=== PATIENT | male | born 1970 | race Caucasian/White ===

== ENCOUNTER 2020-10-05 20:45 | Emergency (ER) | payer SELFPAY ==
--- NOTE | 2020-10-05 20:44 | DI.CT.S_ITS ---
PROCEDURE: CT CERVICAL SPINE WO CON INDICATIONS: altered, found down TECHNIQUE: Noncontrast 3 mm thick sections acquired from the skull base to the T4 level. Sagittal and coronal reformats were then constructed. For radiation dose reduction, the following was used: automated exposure control, adjustment of mA and/or kV according to patient size. COMPARISON: None. FINDINGS: Image quality: Degraded by patient motion artifact. Bones: No fractures or dislocations. Visualized superior ribs are intact. Spine degenerative disc disease and facet arthropathy. Soft tissues: Prevertebral soft tissues are normal in thickness. No paravertebral hematomas. No apical pneumothoraces. Partially visualized right-sided pleural fluid collection. IMPRESSION: No fracture limitations related to motion artifact. No acute osseous lesion within limitations related to motion artifact. If symptoms and/or clinical suspicion for pathology persists, evaluation with MRI should be considered for further assessment. Dictated by: Andria Haley MD, PhD on 10/06/2020 at 7:43 Approved by: Andria Haley MD, PhD on 10/06/2020 at 7:49
--- NOTE | 2020-10-05 20:44 | DI.CT.S_ITS ---
PROCEDURE: CT HEAD/BRAIN WO CON INDICATIONS: altered, found down TECHNIQUE: Noncontrast 4.5 mm thick angled axial sections acquired from the foramen magnum to the vertex, with coronal and sagittal reformats. For radiation dose reduction, the following was used: automated exposure control, adjustment of mA and/or kV according to patient size. COMPARISON: None. FINDINGS: Image quality: Excellent. CSF spaces: Basal cisterns are patent. No extra-axial fluid collections. The ventricles are symmetric in size and shape. Brain: No intracranial bleeds or masses. There is cerebral volume loss for age, with resultant ventricular and sulcal prominence. There are periventricular and deep white matter chronic small vessel ischemic changes. There is intracranial internal carotid artery atherosclerosis. Skull and face: Calvarium and visualized facial bones appear intact, without suspicious lesions. Sinuses: Polypoid mucosal thickening noted in the maxillary sinuses bilaterally. Mild mucosal thickening scattered throughout the right ethmoid air cells. The mastoids are clear. IMPRESSION: No acute intracranial disease process. Dictated by: Andria Haley MD, PhD on 10/06/2020 at 7:15 Approved by: Andria Haley MD, PhD on 10/06/2020 at 7:17
[2020-10-05 20:45] VITALS: BP 133/87; PULSE 102; RESP 17; TEMP 36.6; O2SAT 96
[2020-10-05 21:28] LABS: Add Manual Diff / Slide Review NO; Basophils Absolute Auto 200 /uL (0-100); Basophils Percent Auto 1.4 % (0-2); Eosinophils Absolute Auto 2700 /uL (0-450); Eosinophils Percent Auto 18.1 % (2-4); Hematocrit 36.1 % (41-53); Hemoglobin 11.5 g/dL (13.5-17.5); Lymphocytes Absolute Auto 1800 /uL (1100-4500); Lymphocytes Percent Auto 12.2 % (25-40); Mean Corpuscular HGB Conc 31.8 % (30-36); Mean Corpuscular Hemoglobin 26.1 PG (26-34); Mean Corpuscular Volume 82.3 fL (80-100); Monocytes Absolute Auto 900 /uL (0-900); Neutrophils Absolute Auto 9400 /uL (1500-7000); Neutrophils Percent Auto 62.3 % (50-75); Platelet Count 714 X10^3/uL (150-400); Red Blood Cell Count 4.38 X10^6/uL (4.5-5.9); Red Cell Distribution Width 17.3 % (11.6-14.8); White Blood Cell Count 15.2 X10^3/uL (4.5-11.0)
[2020-10-05 21:35] LABS: Prothrombin Time 11.2 SECONDS (10.1-12.7)
[2020-10-05 21:38] LABS: PTT Partial Thromboplastin Tim 36 SECONDS (26.4-36.2)
--- NOTE | 2020-10-05 21:42 | PC.NURSE ---
Pt removed iv and refused lab draws; further care.
[2020-10-05 22:03] LABS: Acetaminophen < 10 ug/mL (10-30); Alanine Aminotransferase 22 IU/L (<50); Albumin 3.9 g/dL (3.5-5.0); Albumin Globulin Ratio 1.2 (1.0-2.8); Alkaline Phosphatase 112 U/L (38-126); Aspartate Aminotransferase 34 IU/L (17-59); Bilirubin Total 0.1 mg/dL (0.2-1.3); Blood Urea Nitrogen 13 mg/dL (9-20); Calcium 9.7 mg/dL (8.4-10.2); Carbon Dioxide 24 mmol/L (22-32); Chloride 105 mmol/L (98-107); Creatine Kinase 135 U/L (55-170); Estimated Glomerular Filt Rate > 60.0 mL/min (>60); Ethanol (ETOH) < 10 mg/dL; Globulin 3.3 g/dL (1.7-4.1); Glucose 116 mg/dL (70-100); HEMOLYSIS < 15 (0-50); Potassium 4.1 mmol/L (3.4-5.1); Salicylate < 1.0 mg/dL (<20); Sodium 137 mmol/L (137-145); Total Protein 7.2 g/dL (6.3-8.2)
--- NOTE | 2020-10-05 22:09 | ED.AMS ---
HPI - Altered Mental Status <Kash Manning DO - Last Filed: 10/06/20 17:59> General Chief Complaint: Altered Mental Status Stated Complaint: Laying on trail Time Seen by Provider: 10/05/20 20:46 Source: patient and EMS Mode of arrival: EMS Limitations: no limitations History of Present Illness HPI narrative: 50-year-old maleSmoker, drinker presents by EMS after being found laying on a local bike trail, he was noted by a passerby and EMS was activated. Patient is homeless and states that he was relocating himself and became tired so he laid down. He denies any injury and EMS states there was no bicycle or other suggestion of injury. He denies any head, neck or back pain. He denies any extremity discomfort. He denies any fever or chills. He has had no chest pain or shortness of breath and he denies any focal neurologic symptoms such as numbness, tingling or weakness. He has had no nausea, vomiting or diarrhea. Vitals and blood glucose were within normal limits pre-hospital. Patient does not take any medications. He denies any suicidal or homicidal ideations. MD complaint: altered mental status and intoxication Onset (ago): unknown Severity: moderate Context: alcohol abuse Associated symptoms: denies other symptoms Related Data Home Medications Medication Instructions Recorded Confirmed No Known Home Medications 10/05/20 10/05/20 Allergies Allergy/AdvReac Type Severity Reaction Status Date / Time No Known Drug Allergies Allergy Verified 10/05/20 20:49 Review of Systems <Kash Manning DO - Last Filed: 10/06/20 17:59> Constitutional Constitutional: Denies chills, Denies fatigue, Denies fever(s), Denies frequent falls, Denies lethargy and Denies weakness Eyes Eyes: Denies change in vision, Denies eye discharge, Denies irritation and Denies loss of vision ENT Ears, Nose, Mouth, and Throat: Denies change in voice, Denies dizziness, Denies neck pain, Denies sore throat and Denies throat swelling Cardiovascular Cardiovascular: Denies chest pain, Denies irregular heart rhythm, Denies lightheadedness, Denies palpitations, Denies dyspnea, Denies dyspnea on exertion and Denies orthopnea Respiratory Respiratory: Denies cough, Denies dyspnea, Denies dyspnea on exertion and Denies wheezing Gastrointestinal Gastrointestinal: Denies abdominal pain, Denies change in bowel habits, Denies diarrhea, Denies nausea and Denies vomiting Musculoskeletal Musculoskeletal: Denies neck pain and Denies numbness Integumentary/Breasts Skin/Breast: Denies pruritus, Denies erythema, Denies rash and Denies wounds Neurologic Neurologic: Denies behavioral changes, Denies confusion, Denies dizziness, Denies frequent falls, Denies loss of vision, Denies numbness and Denies weakness Psychiatric Psychiatric: Denies anxiety, Denies behavioral changes, Denies confusion, Denies depression, Denies homicidal ideation and Denies suicidal ideation Endocrine Endocrine: Denies fatigue, Denies flushing and Denies palpitations Hematologic/Lymphatic Hematologic/Lymphatic: Denies easy bruising Allergic/Immunologic Allergic/Immunologic: Denies urticaria, Denies throat swelling and Denies wheezing Patient History <Kash Manning DO - Last Filed: 10/06/20 17:59> Medical History Homeless Social History Smoking Status: Current every day smoker Smoking Status: Current every day smoker alcohol intake frequency: 0-2 drinks per day Substance Use Type: does not use Exam <Kash Manning DO - Last Filed: 10/06/20 17:59> Narrative Exam Narrative: GENERAL: [50] year old patient appears older than stated age. Slurring his words, a bit agitated, disheveled, no obvious injury, wearing a helmet which he states he wears for general safety. HEAD: Atraumatic. Normocephalic. EYES: Pupils equal round and reactive. Extraocular motions intact. No scleral icterus. No injection or drainage. ENT: Poor dentition throughout Nose without bleeding, purulent drainage. Throat without erythema, tonsillar hypertrophy or exudate. Airway patent. NECK: Trachea midline. Non tender CARDIOVASCULAR: Regular rate and rhythm without murmurs, gallops, or rubs. RESPIRATORY: Clear to auscultation. Breath sounds equal bilaterally. No wheezes, rales, or rhonchi. GASTROINTESTINAL: Abdomen soft, non-tender, nondistended. EXTREMITIES: No edema or joint tenderness. BACK: Nontender without deformity or crepitance. No flank tenderness. NEURO: Awake and alert, largely cooperative SKIN: No rash or erythema of visible areas Initial Vital Signs Initial Vital Signs: Vital Signs Temperature 97.8 F 10/05/20 20:45 Pulse Rate 102 H 10/05/20 20:45 Respiratory Rate 17 10/05/20 20:45 Blood Pressure 133/87 10/05/20 20:45 Pulse Oximetry 96 10/05/20 20:45 <Faiza Nqavi DO - Last Filed: 10/06/20 08:19> Initial Vital Signs Initial Vital Signs: Vital Signs Temperature 97.8 F 10/05/20 20:45 Pulse Rate 102 H 10/05/20 20:45 Respiratory Rate 17 10/05/20 20:45 Blood Pressure 133/87 10/05/20 20:45 Pulse Oximetry 96 10/05/20 20:45 Scores <Kash Manning DO - Last Filed: 10/06/20 17:59> GCS Thorofare coma scale eye opening: Spontaneous Alia coma scale verbal response: Confused Thorof[place] coma scale motor response: Obey commands Thorofare coma scale total score: 14 Course <Kash Manning DO - Last Filed: 10/06/20 17:59> Course Course Narrative: 0600 - patient awake. Alert, oriented. Speaking clearly. Currently agreeable to wait on a food tray and will speak with [employer] to explore possible community assistance. Orders Ordered: Discontinued Medications Sodium Chloride (Normal Saline 0.9%) 1,000 mls @ 150 mls/hr IV CONT [facility] Last Admin: 10/05/20 22:12 Dose: Not Given Documented by: PERLITA Vital Signs Vital signs: Vital Signs - 8 hr 10/05/20 20:45 Temperature 97.8 F Pulse Rate 102 H Respiratory Rate 17 Blood Pressure 133/87 Pulse Oximetry 96 <Faiza Naqvi DO - Last Filed: 10/06/20 08:19> Orders Ordered: Discontinued Medications Sodium Chloride (Normal Saline 0.9%) 1,000 mls @ 150 mls/hr IV CONT [facility] Last Admin: 10/05/20 22:12 Dose: Not Given Documented by: PERLITA Vital Signs Vital signs: Vital Signs - 8 hr 10/05/20 20:45 Temperature 97.8 F Pulse Rate 102 H Respiratory Rate 17 Blood Pressure 133/87 Pulse Oximetry 96 MDM - Altered Mental Status <Kash Manning DO - Last Filed: 10/06/20 17:59> Lab Data Result diagrams: 10/05/20 21:15 10/05/20 21:15 Labs: Lab Results 10/05/20 10/05/20 10/05/20 Range/Units 21:15 21:15 21:15 WBC 15.2 H (4.5-11.0) X10^3/uL RBC 4.38 L (4.5-5.9) X10^6/uL Hgb 11.5 L (13.5-17.5) g/dL Hct 36.1 L (41-53) % MCV 82.3 (80-100) fL MCH 26.1 (26-34) PG MCHC 31.8 (30-36) % RDW 17.3 H (11.6-14.8) % Plt Count 714 H (150-400) X10^3/uL Neut % (Auto) 62.3 (50-75) % Lymph % (Auto) 12.2 L (25-40) % Greenlee % (Auto) 6.0 (3-14) % Eos % (Auto) 18.1 H (2-4) % Baso % (Auto) 1.4 (0-2) % Neut # (Auto) 9400 H (7903-2430) /uL Lymph # (Auto) 1800 (6353-1772) /uL Greenlee # (Auto) 900 (0-900) /uL Eos # (Auto) 2700 H (0-450) /uL Baso # (Auto) 200 H (0-100) /uL PT 11.2 (10.1-12.7) SECONDS INR 1.0 (0.9-1.3) APTT 36 (26.4-36.2) SECONDS Sodium 137 (137-145) mmol/L Potassium 4.1 (3.4-5.1) mmol/L Chloride 105 (98-107) mmol/L Carbon Dioxide 24 (22-32) mmol/L BUN 13 (9-20) mg/dL Creatinine 0.65 L (0.66-1.25) mg/dL Estimated GFR > 60.0 (>60) mL/min BUN/Creatinine Ratio 20.0 (6-22) Glucose 116 H (70-100) mg/dL Lactate Calcium 9.7 (8.4-10.2) mg/dL Total Bilirubin 0.1 L (0.2-1.3) mg/dL AST 34 (17-59) IU/L ALT 22 (<50) IU/L Alkaline Phosphatase 112 (38-126) U/L Total Creatine Kinase 135 (55-170) U/L CK-MB (CK-2) 2.63 H (<2.37) ng/mL CK-MB (CK-2) Rel Index 1.9 (1.5-5.0) % Troponin I < 0.012 (0.01-0.034) ng/mL Total Protein 7.2 (6.3-8.2) g/dL Albumin 3.9 (3.5-5.0) g/dL Globulin 3.3 (1.7-4.1) g/dL Albumin/Globulin Ratio 1.2 (1.0-2.8) TSH (0.47-4.68) uIU/mL Prolactin 12.9 (3.7-17.9) ng/mL Salicylates < 1.0 (<20) mg/dL Acetaminophen < 10 L (10-30) ug/mL Ethyl Alcohol < 10 ( - 10) mg/dL 10/05/20 10/05/20 Range/Units 21:15 21:15 WBC (4.5-11.0) X10^3/uL RBC (4.5-5.9) X10^6/uL Hgb (13.5-17.5) g/dL Hct (41-53) % MCV (80-100) fL MCH (26-34) PG MCHC (30-36) % RDW (11.6-14.8) % Plt Count (150-400) X10^3/uL Neut % (Auto) (50-75) % Lymph % (Auto) (25-40) % Greenlee % (Auto) (3-14) % Eos % (Auto) (2-4) % Baso % (Auto) (0-2) % Neut # (Auto) (6083-4187) /uL Lymph # (Auto) (7714-1371) /uL Greenlee # (Auto) (0-900) /uL Eos # (Auto) (0-450) /uL Baso # (Auto) (0-100) /uL PT (10.1-12.7) SECONDS INR (0.9-1.3) APTT (26.4-36.2) SECONDS Sodium (137-145) mmol/L Potassium (3.4-5.1) mmol/L Chloride (98-107) mmol/L Carbon Dioxide (22-32) mmol/L BUN (9-20) mg/dL Creatinine (0.66-1.25) mg/dL Estimated GFR (>60) mL/min BUN/Creatinine Ratio (6-22) Glucose (70-100) mg/dL Lactate Cancelled Calcium (8.4-10.2) mg/dL Total Bilirubin (0.2-1.3) mg/dL AST (17-59) IU/L ALT (<50) IU/L Alkaline Phosphatase (38-126) U/L Total Creatine Kinase (55-170) U/L CK-MB (CK-2) (<2.37) ng/mL CK-MB (CK-2) Rel Index (1.5-5.0) % Troponin I (0.01-0.034) ng/mL Total Protein (6.3-8.2) g/dL Albumin (3.5-5.0) g/dL Globulin (1.7-4.1) g/dL Albumin/Globulin Ratio (1.0-2.8) TSH 1.11 (0.47-4.68) uIU/mL Prolactin (3.7-17.9) ng/mL Salicylates (<20) mg/dL Acetaminophen (10-30) ug/mL Ethyl Alcohol ( - 10) mg/dL Point of Care Testing Glucose POC [address] scan - head: Radiologist's Impression: No acute process CT - cervical spine: Radiologist's Impression: no bony process <Faiza Naqvi, DO - Last Filed: 10/06/20 08:19> Lab Data Labs: Lab Results 10/05/20 10/05/20 10/05/20 Range/Units 21:15 21:15 21:15 WBC 15.2 H (4.5-11.0) X10^3/uL RBC 4.38 L (4.5-5.9) X10^6/uL Hgb 11.5 L (13.5-17.5) g/dL Hct 36.1 L (41-53) % MCV 82.3 (80-100) fL MCH 26.1 (26-34) PG MCHC 31.8 (30-36) % RDW 17.3 H (11.6-14.8) % Plt Count 714 H (150-400) X10^3/uL Neut % (Auto) 62.3 (50-75) % Lymph % (Auto) 12.2 L (25-40) % Greenlee % (Auto) 6.0 (3-14) % Eos % (Auto) 18.1 H (2-4) % Baso % (Auto) 1.4 (0-2) % Neut # (Auto) 9400 H (2968-7741) /uL Lymph # (Auto) 1800 (6072-9425) /uL Greenlee # (Auto) 900 (0-900) /uL Eos # (Auto) 2700 H (0-450) /uL Baso # (Auto) 200 H (0-100) /uL PT 11.2 (10.1-12.7) SECONDS INR 1.0 (0.9-1.3) APTT 36 (26.4-36.2) SECONDS Sodium 137 (137-145) mmol/L Potassium 4.1 (3.4-5.1) mmol/L Chloride 105 (98-107) mmol/L Carbon Dioxide 24 (22-32) mmol/L BUN 13 (9-20) mg/dL Creatinine 0.65 L (0.66-1.25) mg/dL Estimated GFR > 60.0 (>60) mL/min BUN/Creatinine Ratio 20.0 (6-22) Glucose 116 H (70-100) mg/dL Lactate Calcium 9.7 (8.4-10.2) mg/dL Total Bilirubin 0.1 L (0.2-1.3) mg/dL AST 34 (17-59) IU/L ALT 22 (<50) IU/L Alkaline Phosphatase 112 (38-126) U/L Total Creatine Kinase 135 (55-170) U/L CK-MB (CK-2) 2.63 H (<2.37) ng/mL CK-MB (CK-2) Rel Index 1.9 (1.5-5.0) % Troponin I < 0.012 (0.01-0.034) ng/mL Total Protein 7.2 (6.3-8.2) g/dL Albumin 3.9 (3.5-5.0) g/dL Globulin 3.3 (1.7-4.1) g/dL Albumin/Globulin Ratio 1.2 (1.0-2.8) TSH (0.47-4.68) uIU/mL Prolactin 12.9 (3.7-17.9) ng/mL Salicylates < 1.0 (<20) mg/dL Acetaminophen < 10 L (10-30) ug/mL Ethyl Alcohol < 10 ( - 10) mg/dL 10/05/20 10/05/20 Range/Units 21:15 21:15 WBC (4.5-11.0) X10^3/uL RBC (4.5-5.9) X10^6/uL Hgb (13.5-17.5) g/dL Hct (41-53) % MCV (80-100) fL MCH (26-34) PG MCHC (30-36) % RDW (11.6-14.8) % Plt Count (150-400) X10^3/uL Neut % (Auto) (50-75) % Lymph % (Auto) (25-40) % Greenlee % (Auto) (3-14) % Eos % (Auto) (2-4) % Baso % (Auto) (0-2) % Neut # (Auto) (3677-2667) /uL Lymph # (Auto) (2775-7036) /uL Greenlee # (Auto) (0-900) /uL Eos # (Auto) (0-450) /uL Baso # (Auto) (0-100) /uL PT (10.1-12.7) SECONDS INR (0.9-1.3) APTT (26.4-36.2) SECONDS Sodium (137-145) mmol/L Potassium (3.4-5.1) mmol/L Chloride (98-107) mmol/L Carbon Dioxide (22-32) mmol/L BUN (9-20) mg/dL Creatinine (0.66-1.25) mg/dL Estimated GFR (>60) mL/min BUN/Creatinine Ratio (6-22) Glucose (70-100) mg/dL Lactate Cancelled Calcium (8.4-10.2) mg/dL Total Bilirubin (0.2-1.3) mg/dL AST (17-59) IU/L ALT (<50) IU/L Alkaline Phosphatase (38-126) U/L Total Creatine Kinase (55-170) U/L CK-MB (CK-2) (<2.37) ng/mL CK-MB (CK-2) Rel Index (1.5-5.0) % Troponin I (0.01-0.034) ng/mL Total Protein (6.3-8.2) g/dL Albumin (3.5-5.0) g/dL Globulin (1.7-4.1) g/dL Albumin/Globulin Ratio (1.0-2.8) TSH 1.11 (0.47-4.68) uIU/mL Prolactin (3.7-17.9) ng/mL Salicylates (<20) mg/dL Acetaminophen (10-30) ug/mL Ethyl Alcohol ( - 10) mg/dL Point of Care Testing Glucose POC 109 MDM Narrative Medical decision making narrative: I received sign-out from Dr. Manning if he evaluated patient myself. He is sitting eating breakfast. Denies any suicidal or homicidal ideations. The at this time he does not meet involuntary criteria. Discharge Plan Departure Patient Disposition: Home Clinical Impression: Chronic mental illness, Homeless single person Instructions: DI for Altered Mental Status Activity Restrictions/Additional Instructions: *You have been diagnosed with altered mental status *What to do: At this time blood work and his CT scans are reassuring. I recommend you reach out to the community resources to help you. *Continue to take medications as directed *Follow up with your primary care provider in 2-3 days *Return to ER if you should have any new, worsening or concerning symptoms Prescriptions: No Action No Known Home Medications RF: 0 Referrals: [facility] [Outside]
--- NOTE | 2020-10-05 22:12 | PC.NURSE ---
patient removed his iv; no access at this time.
[2020-10-05 22:13] LABS: Troponin I < 0.012 ng/mL (0.01-0.034)
[2020-10-05 22:15] LABS: Thyroid Stimulating Hormone 1.11 uIU/mL (0.47-4.68)
[2020-10-05 22:17] LABS: CKMB % Relative Index 1.9 % (1.5-5.0); Creatine Kinase MB 2.63 ng/mL (<2.37)
[2020-10-05 22:18] LABS: Prolactin 12.9 ng/mL (3.7-17.9)
--- NOTE | 2020-10-06 06:12 | PC.NURSE ---
Patient slept for the majority of the shift; declined offers of care; awoke around 0600. He ate and discussed plan with doctor.
[2020-10-06 08:28] VITALS: BP 125/72; PULSE 82; RESP 15; O2SAT 99
--- NOTE | 2020-10-06 08:29 | PC.NURSE ---
night staff stated patient pulled own IV out. Bandage in place upon discharge
== END 2020-10-06 08:31 | disposition home or self-care (01) ==
PROVIDERS: Emergency Medicine; Emergency Provider Emergency Medicine
DX: F99 Mental disorder, not otherwise specified (principal); Z59.0 Homelessness
CPT/HCPCS: 36415; 70450; 72125; 80053; 80320; 80329; 82550; 82553; 82962; 84146; 84443; 84484; 85025; 85610; 85730; 87040; 93005; 99284; 99285; G0480